=== PATIENT | female | born 1950 | race Two or more races ===

== ENCOUNTER → 2020-10-13 | Outpatient (CLI) | payer MEDICARE | END | disposition home or self-care (01) | LOC: Rad HDHVI 13:45 | PROVIDERS: ATTEND Internal Medicine Cardiovascular Disease | DX: R94.31 Abnormal electrocardiogram [ECG] [EKG] (principal); I10 Essential (primary) hypertension | CPT/HCPCS: 93306 ==

== ENCOUNTER → 2020-10-14 | Outpatient (CLI) | payer MEDICARE ==
[~2020-10-14] VITALS: Ht 162.6 cm; Wt 106.1 kg
[~2020-10-14] MED LIST: ADENOSINE 89 MG in GIVE UN-DILUTED 0 ML IV ONE; ADENOSINE 90 MG/30 ML INJ IV ONE
== END | disposition home or self-care (01) ==
LOC: Rad HDHVI 13:32
PROVIDERS: ATTEND Internal Medicine Cardiovascular Disease
DX: I10 Essential (primary) hypertension (principal); R00.0 Tachycardia, unspecified; E11.9 Type 2 diabetes mellitus without complications
CPT/HCPCS: 78452; 93005; 96374; 96375; A9500; J0153

== ENCOUNTER → 2022-01-14 | Outpatient (CLI) | payer MEDICARE, OTHER | END | disposition home or self-care (01) | LOC: Rad HDHVI 11:04 | PROVIDERS: ATTEND Internal Medicine Cardiovascular Disease | DX: I08.3 Combined rheumatic disorders of mitral, aortic and tricuspid valves (principal); R00.0 Tachycardia, unspecified | CPT/HCPCS: 93306 ==

== ENCOUNTER → 2022-01-19 | Outpatient (CLI) | payer MEDICARE, OTHER ==
[~2022-01-19] VITALS: Ht 162.6 cm; Wt 108.0 kg
[~2022-01-19] MED LIST changes: -ADENOSINE 89 MG in GIVE UN-DILUTED 0 ML IV ONE; +ADENOSINE 91 MG in GIVE UN-DILUTED 0 ML IV ONE
== END | disposition home or self-care (01) ==
LOC: Rad HDHVI 09:11
PROVIDERS: ATTEND Internal Medicine Cardiovascular Disease
DX: E11.65 Type 2 diabetes mellitus with hyperglycemia (principal); I11.0 Hypertensive heart disease with heart failure; I50.23 Acute on chronic systolic (congestive) heart failure; I25.2 Old myocardial infarction; I48.91 Unspecified atrial fibrillation; R06.02 Shortness of breath; E11.40 Type 2 diabetes mellitus with diabetic neuropathy, unspecified; E11.21 Type 2 diabetes mellitus with diabetic nephropathy; R60.1 Generalized edema; I42.0 Dilated cardiomyopathy; I48.0 Paroxysmal atrial fibrillation; E78.00 Pure hypercholesterolemia, unspecified; Z79.899 Other long term (current) drug therapy
CPT/HCPCS: 78452; 93005; 96374; 96375; A9500; J0153

== ENCOUNTER 2022-03-04 07:55 | Day surgery (SDC) | payer MEDICARE, OTHER ==
[~2022-03-04] VITALS: Ht 162.6 cm; Wt 102.1 kg
[~2022-03-04 07:55] MED LIST changes: -ADENOSINE 90 MG/30 ML INJ IV ONE; -ADENOSINE 91 MG in GIVE UN-DILUTED 0 ML IV ONE; +AMIO200T33 PO; +APIX2.5T PO; +BUPR-160 PO; +INSLANTI SC; +INSU50IN SC; +LOSA-39 PO; +METO-6 PO; +TRAZ100T3 PO
[2022-03-04] MEDS ORDERED: LIDOCAINE 2%HCL (LOCAL ANESTH.) INJ 10ml MDV ONE (14:11)
[2022-03-04] MEDS ORDERED: fentaNYL CITRATE 100 MCG/2 ML VL ONE (14:11)
[2022-03-04] MEDS ORDERED: MIDAZOLAM HCL 2MG/2ML 2ml VIAL (1mg/ml) ONE (14:11)
[2022-03-04] MEDS ORDERED: ANGIOMAX 250 MG VIAL IV ONE (14:11)
[2022-03-04] MEDS ORDERED: SODIUM CHL 0.9% 0 ML ONE (14:11)
[2022-03-04] MEDS ORDERED: FUROSEMIDE 20 MG/2 ML VIAL ONE (14:33)
[2022-03-04 14:52] VITALS: BP 131/56
[2022-03-04 15:08] VITALS: BP 112/64
[2022-03-04 15:22] VITALS: BP 112/69
[2022-03-04 15:37] VITALS: BP 123/57
[2022-03-04 15:52] VITALS: BP 127/69
[2022-03-04 16:52] VITALS: BP 142/62
== END 2022-03-04 17:13 | disposition home or self-care (01) ==
LOC: CATH 07:55
PROVIDERS: ATTEND Internal Medicine Cardiovascular Disease
DX: R07.89 Other chest pain (principal); R94.39 Abnormal result of other cardiovascular function study; I48.0 Paroxysmal atrial fibrillation; I50.30 Unspecified diastolic (congestive) heart failure; Z20.822 Contact with and (suspected) exposure to COVID-19
CPT/HCPCS: 93458; C1760; C1769; C1894; J1644; J1940; J2001; J2250; J3010; U0003; 99152; 99153

== ENCOUNTER 2022-09-17 18:22 | Inpatient (IN) | payer MEDICARE, OTHER ==
[~2022-09-17] VITALS: Ht 162.6 cm; Wt 102.9 kg
[~2022-09-17 18:22] MED LIST changes: -BUPR-160 PO; +BUPR-346 PO; -LOSA-39 PO; +LOSA100T58 PO; +TRAZ-228 PO; -TRAZ100T3 PO
[2022-09-17 19:35] LABS: Basophils # (auto) 0.1 10 ^3/uL (0-0.2); Basophils % (auto) 1.2 % (0.0-2.0); Eosinophils # (auto) 0.9 10 ^3/uL (0-0.8); Hemoglobin 9.5 g/dL (12.2-16.2); Lymphocytes # (auto) 1.2 10 ^3/uL (0.4-5.4); Mean Corpuscular Hemoglobin 29.8 pg (28.0-32.0); Mean Corpuscular Hgb Conc. 31.8 g/dL (32.0-36.0); Mean Corpuscular Volume 93.5 fL (80.0-100.0); Monocytes # (auto) 1.3 10 ^3/uL (0-1.3); Monocytes % (auto) 13.7 % (0.0-12.0); Neutrophils # (auto) 5.8 10 ^3/uL (1.6-8.6); Neutrophils % (auto) 62.1 % (37.0-80.0); Red Cell Distribution Width 15.3 % (11.8-14.3); White Blood Cell 9.4 10^3/uL (4.4-10.8)
[2022-09-17 19:52] LABS: Albumin 2.9 g/dL (3.4-5.0); Calcium 8.7 mg/dL (8.5-10.1); Potassium 5.3 mmol/L (3.5-5.1)
[2022-09-17 20:01] LABS: Bilirubin, Total 0.2 mg/dL (0.2-1.0); CRP High Sensitivity 1.92 mg/dL (< 0.3); Total Protein 6.5 g/dL (6.4-8.2)
[2022-09-17] MEDS ORDERED: ALBUTEROL SULF 2.5 MG/0.5ML(0.5%) NEB SOLN NEB ONE (21:30)
[2022-09-17] MEDS ORDERED: PIPERACILLIN-TAZOB 3.375GM 100 ML IV ONE (21:30)
[2022-09-17] MEDS ORDERED: FUROSEMIDE 40 MG/4 ML VIAL IV ONE (21:30)
[2022-09-17] MEDS ORDERED: GOLYTELY 4L KIT PO ONE (22:45)
[2022-09-18] MEDS ORDERED: VANCOMYCIN PER PHARMACY 0 MG IV SCH
[2022-09-18] MEDS ORDERED: ONDANSETRON HCL 4 MG/2 ML VIAL IV PRN
[2022-09-18] MEDS ORDERED: FLEET ENEMA(ADULT) 135 ML PR ONE
[2022-09-18] MEDS ORDERED: DEXTROSE (50%) 50ML SYRG IV PRN
[2022-09-18] MEDS ORDERED: NITROGLYCERIN 0.4 MG SL TAB SL PRN
[2022-09-18] MEDS ORDERED: DOCUSATE SOD 100 MG CAP PO PRN
[2022-09-18] MEDS ORDERED: ACETAMINOPHEN 325 MG TAB PO PRN
[2022-09-18] MEDS ORDERED: SODIUM ZIRCONIUM CYCL 10 GM PAK PO ONE
[2022-09-18] MEDS ORDERED: MORPHINE SULFATE INJ 2 MG/ml SYRG IV PRN
[2022-09-18] MEDS ORDERED: VANCOMYCIN 1GM/250ML 250 ML IV ONE (01:00)
[2022-09-18] MEDS: ACCU-CHEK COMFORT CURVE STRIP VI SCH ×4 (07:25→21:44)
[2022-09-18 08:19] LABS: Calcium 9.5 mg/dL (8.5-10.1); Potassium 4.6 mmol/L (3.5-5.1)
[2022-09-18 08:24] LABS: BUN/Creatinine Ratio 36.2 (10.0-20.0); Bilirubin, Total 0.3 mg/dL (0.2-1.0); Total Protein 7.1 g/dL (6.4-8.2)
[2022-09-18 08:40] LABS: Basophils # (auto) 0.1 10 ^3/uL (0-0.2); Basophils % (auto) 0.9 % (0.0-2.0); Eosinophils # (auto) 1.1 10 ^3/uL (0-0.8); Eosinophils % (auto) 11.8 % (0.0-7.0); Hematocrit 31.3 % (36.0-46.0); Hemoglobin 10.2 g/dL (12.2-16.2); Lymphocytes # (auto) 1.6 10 ^3/uL (0.4-5.4); Lymphocytes % (auto) 17.5 % (10.0-50.0); Mean Corpuscular Hemoglobin 30.5 pg (28.0-32.0); Mean Corpuscular Hgb Conc. 32.6 g/dL (32.0-36.0); Mean Corpuscular Volume 93.6 fL (80.0-100.0); Monocytes % (auto) 10.8 % (0.0-12.0); Neutrophils # (auto) 5.5 10 ^3/uL (1.6-8.6); Nucleated Red Blood Cells % 0.1 %; Red Blood Cells 3.34 10^6/uL (4.0-5.20); Red Cell Distribution Width 15.1 % (11.8-14.3); White Blood Cell 9.3 10^3/uL (4.4-10.8)
[2022-09-18] MEDS: SODIUM CHLOR 0.9% PF (SALINE LOCK) 10ML VIAL/SYR IV SCH ×3 (09:13→21:51)
[2022-09-18] MEDS: InsuLIN REG 1unit/0.01ml Soln (100units/ml) SC SCH ×4 (09:13→21:54)
[2022-09-18 09:19] VITALS: PULSE 81; RESP 18; O2SAT 98
[2022-09-18] MEDS: APIXABAN 2.5 MG TAB PO SCH ×2 (10:50→21:53)
[2022-09-18] MEDS ORDERED: FUROSEMIDE 100 MG/10ML VIAL IV ONE (11:30)
[2022-09-18] MEDS: ALBUMIN 25% 50 ML IV SCH ×2 (13:49→21:40)
[2022-09-18 14:45] LABS: Sodium Urine 63 mmol/L (40-220)
[2022-09-18 14:47] LABS: Creatinine, Urine 29 mg/dL (30.0-125.0)
[2022-09-18 15:30] LABS: Urine Bacteria FEW /hpf (None Seen); Urine Blood Negative /uL (Negative); Urine Hyaline Cast FEW /lpf (0 - 2); Urine WBC 34 /hpf (0 - 5)
[2022-09-18 19:25] VITALS: PULSE 86; RESP 17; O2SAT 95
[2022-09-18] MEDS: HYDROcodone-ACET 5/325MG TAB PO PRN (22:55)
[2022-09-19] MEDS: VANCOMYCIN 1GM/250ML 250 ML IV SCH ×2 (03:26→21:17)
[2022-09-19 05:00] VITALS: BP 112/51; PULSE 85; RESP 17; TEMP 97.7; O2SAT 96
[2022-09-19] MEDS: ALBUMIN 25% 50 ML IV SCH (05:14)
[2022-09-19] MEDS: SODIUM CHLOR 0.9% PF (SALINE LOCK) 10ML VIAL/SYR IV SCH ×3 (05:15→21:17)
[2022-09-19 06:31] LABS: BUN/Creatinine Ratio 30.2 (10.0-20.0); Potassium 3.8 mmol/L (3.5-5.1)
[2022-09-19] MEDS: ACCU-CHEK COMFORT CURVE STRIP VI SCH ×4 (07:08→21:33)
[2022-09-19] MEDS: InsuLIN REG 1unit/0.01ml Soln (100units/ml) SC SCH ×4 (07:24→21:35)
[2022-09-19 08:00] VITALS: PULSE 90; RESP 19; O2SAT 98
[2022-09-19 09:00] VITALS: BP 123/55; PULSE 90; RESP 16; TEMP 98; O2SAT 98
[2022-09-19] MEDS ORDERED: FUROSEMIDE 100 MG/10ML VIAL IV SCH (10:00)
[2022-09-19] MEDS: LOSARTAN POTASSIUM 50 MG TAB PO SCH (11:42)
[2022-09-19] MEDS: AMIODARONE HCL 200 MG TAB PO SCH (11:42)
[2022-09-19] MEDS: buPROPion HCL 100 MG TAB PO SCH (11:43)
[2022-09-19] MEDS: METOPROLOL SUCCINATE XL 50 MG TAB PO SCH (11:43)
[2022-09-19] MEDS: APIXABAN 2.5 MG TAB PO SCH ×2 (11:43→21:16)
[2022-09-19] MEDS: INSULIN LISPRO PROTAMINE SC SCH ×2 (11:51→21:36)
[2022-09-19] MEDS: INSULIN LISPRO SC SCH ×2 (11:51→21:36)
[2022-09-19 12:53] VITALS: BP 138/76; PULSE 90; RESP 19; TEMP 97.5; O2SAT 98
[2022-09-19 17:00] VITALS: BP 116/58; PULSE 86; RESP 16; TEMP 97.2; O2SAT 97
[2022-09-19] MEDS: traZODone HCL 50 MG TAB PO SCH (17:03)
[2022-09-19] MEDS: FUROSEMIDE 40 MG TAB PO SCH (17:03)
[2022-09-19] MEDS: INSULIN LANTUS (GLARGINE) 1 /0.01ml (100units/ml) SC SCH (17:05)
[2022-09-19] MEDS: HYDROcodone-ACET 5/325MG TAB PO PRN (21:18)
[2022-09-19 22:00] VITALS: BP 136/67; PULSE 81; RESP 16; TEMP 98.2; O2SAT 97
[2022-09-20 05:00] VITALS: BP 112/49; PULSE 76; RESP 16; TEMP 98.4; O2SAT 97
[2022-09-20] MEDS: FUROSEMIDE 40 MG TAB PO SCH (05:34)
[2022-09-20] MEDS: SODIUM CHLOR 0.9% PF (SALINE LOCK) 10ML VIAL/SYR IV SCH ×3 (05:34→21:35)
[2022-09-20] MEDS: ACCU-CHEK COMFORT CURVE STRIP VI SCH ×4 (06:22→21:37)
[2022-09-20] MEDS: InsuLIN REG 1unit/0.01ml Soln (100units/ml) SC SCH ×4 (06:22→21:36)
[2022-09-20 08:59] LABS: BUN/Creatinine Ratio 26.3 (10.0-20.0); Calcium 9.2 mg/dL (8.5-10.1); Potassium 3.5 mmol/L (3.5-5.1)
[2022-09-20 09:46] VITALS: BP 134/66; PULSE 72; RESP 16; TEMP 98.2; O2SAT 94
[2022-09-20] MEDS: INSULIN LISPRO PROTAMINE SC SCH ×2 (10:00→21:36)
[2022-09-20] MEDS: INSULIN LISPRO SC SCH ×2 (10:00→21:36)
[2022-09-20] MEDS ORDERED: CEPH250C PO (10:48)
[2022-09-20] MEDS ORDERED: FURO1TAB31 PO (10:48)
[2022-09-20] MEDS: buPROPion HCL 100 MG TAB PO SCH (10:54)
[2022-09-20] MEDS: METOPROLOL SUCCINATE XL 50 MG TAB PO SCH (10:55)
[2022-09-20] MEDS: AMIODARONE HCL 200 MG TAB PO SCH (10:55)
[2022-09-20] MEDS: APIXABAN 2.5 MG TAB PO SCH ×2 (10:55→21:33)
[2022-09-20] MEDS: LOSARTAN POTASSIUM 50 MG TAB PO SCH (10:56)
[2022-09-20 14:50] VITALS: BP 111/39; PULSE 78; RESP 16; TEMP 97.9; O2SAT 95
[2022-09-20] MEDS: VANCOMYCIN 1GM/250ML 250 ML IV SCH (15:00)
[2022-09-20] MEDS: FUROSEMIDE INJECTION 100 MG in D5W 5% 100 ML IV SCH (18:16)
[2022-09-20] MEDS: traZODone HCL 50 MG TAB PO SCH (18:16)
[2022-09-20] MEDS: INSULIN LANTUS (GLARGINE) 1 /0.01ml (100units/ml) SC SCH (18:17)
[2022-09-20] MEDS: HYDROcodone-ACET 5/325MG TAB PO PRN (21:34)
[2022-09-20] MEDS: POTASSIUM CHL 20 Meq TABLET PO SCH (21:34)
[2022-09-20 22:12] VITALS: BP 135/53; PULSE 82; RESP 18; TEMP 98.4; O2SAT 94
[2022-09-21] MEDS: FUROSEMIDE INJECTION 100 MG in D5W 5% 100 ML IV SCH ×2 (02:59→12:00)
[2022-09-21 05:25] VITALS: BP 116/51; PULSE 78; RESP 18; O2SAT 93
[2022-09-21] MEDS: SODIUM CHLOR 0.9% PF (SALINE LOCK) 10ML VIAL/SYR IV SCH ×3 (06:00→21:33)
[2022-09-21] MEDS: InsuLIN REG 1unit/0.01ml Soln (100units/ml) SC SCH ×4 (07:00→21:20)
[2022-09-21] MEDS: ACCU-CHEK COMFORT CURVE STRIP VI SCH ×4 (07:07→21:19)
[2022-09-21 09:00] VITALS: BP 109/50; PULSE 81; RESP 14; TEMP 98.4; O2SAT 91
[2022-09-21] MEDS: VANCOMYCIN 1GM/250ML 250 ML IV SCH (09:25)
[2022-09-21] MEDS: buPROPion HCL 100 MG TAB PO SCH (09:26)
[2022-09-21] MEDS: METOPROLOL SUCCINATE XL 50 MG TAB PO SCH (09:27)
[2022-09-21] MEDS: AMIODARONE HCL 200 MG TAB PO SCH (09:28)
[2022-09-21] MEDS: LOSARTAN POTASSIUM 50 MG TAB PO SCH (09:28)
[2022-09-21] MEDS: APIXABAN 2.5 MG TAB PO SCH ×2 (09:28→21:19)
[2022-09-21] MEDS: INSULIN LISPRO SC SCH (09:29)
[2022-09-21] MEDS: INSULIN LISPRO PROTAMINE SC SCH (09:29)
[2022-09-21] MEDS: POTASSIUM CHL 20 Meq TABLET PO SCH ×2 (09:29→21:18)
[2022-09-21] MEDS: LINZESS 290 MCG PO SCH (09:31)
[2022-09-21 11:57] LABS: BUN/Creatinine Ratio 27.6 (10.0-20.0); Calcium 9.2 mg/dL (8.5-10.1); Potassium 3.9 mmol/L (3.5-5.1)
[2022-09-21 13:00] VITALS: BP 120/58; PULSE 75; RESP 18; TEMP 97.8; O2SAT 100
[2022-09-21 17:00] VITALS: BP 117/60; PULSE 72; RESP 20; TEMP 97.9; O2SAT 98
[2022-09-21 17:46] LABS: BUN/Creatinine Ratio 25.3 (10.0-20.0); Calcium 8.9 mg/dL (8.5-10.1); Potassium 3.8 mmol/L (3.5-5.1)
[2022-09-21] MEDS: INSULIN LANTUS (GLARGINE) 1 /0.01ml (100units/ml) SC SCH (17:48)
[2022-09-21] MEDS: traZODone HCL 50 MG TAB PO SCH (17:52)
[2022-09-21] MEDS: HYDROcodone-ACET 5/325MG TAB PO PRN (21:19)
[2022-09-21 22:33] VITALS: BP 120/56; PULSE 75; RESP 22; TEMP 98.5; O2SAT 95
[2022-09-22] MEDS: VANCOMYCIN 1GM/250ML 250 ML IV SCH (02:50)
[2022-09-22 04:55] VITALS: BP 107/40; PULSE 72; RESP 16; TEMP 97.8; O2SAT 99
[2022-09-22] MEDS: ACCU-CHEK COMFORT CURVE STRIP VI SCH ×2 (06:25→11:30)
[2022-09-22] MEDS: SODIUM CHLOR 0.9% PF (SALINE LOCK) 10ML VIAL/SYR IV SCH ×2 (06:27→14:00)
[2022-09-22] MEDS: InsuLIN REG 1unit/0.01ml Soln (100units/ml) SC SCH ×2 (06:27→11:30)
[2022-09-22 06:46] LABS: Potassium 4.1 mmol/L (3.5-5.1)
[2022-09-22 06:53] LABS: Basophils # (auto) 0.1 10 ^3/uL (0-0.2); Eosinophils # (auto) 0.8 10 ^3/uL (0-0.8); Eosinophils % (auto) 8.7 % (0.0-7.0); Hematocrit 31.4 % (36.0-46.0); Hemoglobin 10.3 g/dL (12.2-16.2); Lymphocytes # (auto) 2.2 10 ^3/uL (0.4-5.4); Lymphocytes % (auto) 22.7 % (10.0-50.0); Mean Corpuscular Hemoglobin 30.5 pg (28.0-32.0); Mean Corpuscular Hgb Conc. 32.8 g/dL (32.0-36.0); Mean Corpuscular Volume 92.8 fL (80.0-100.0); Monocytes # (auto) 1.4 10 ^3/uL (0-1.3); Monocytes % (auto) 14.8 % (0.0-12.0); Neutrophils # (auto) 5.2 10 ^3/uL (1.6-8.6); Neutrophils % (auto) 52.8 % (37.0-80.0); Red Blood Cells 3.39 10^6/uL (4.0-5.20); Red Cell Distribution Width 14.5 % (11.8-14.3); White Blood Cell 9.8 10^3/uL (4.4-10.8)
[2022-09-22 06:54] LABS: Albumin 2.9 g/dL (3.4-5.0); Bilirubin, Total 0.3 mg/dL (0.2-1.0); Calcium 8.9 mg/dL (8.5-10.1); Total Protein 6.5 g/dL (6.4-8.2)
[2022-09-22 08:00] VITALS: PULSE 76; RESP 20; O2SAT 96
[2022-09-22 09:00] VITALS: BP 124/58; PULSE 76; RESP 20; TEMP 97.7; O2SAT 96
[2022-09-22] MEDS: buPROPion HCL 100 MG TAB PO SCH (09:41)
[2022-09-22] MEDS: APIXABAN 2.5 MG TAB PO SCH (09:45)
[2022-09-22] MEDS: METOPROLOL SUCCINATE XL 50 MG TAB PO SCH (09:46)
[2022-09-22] MEDS: LOSARTAN POTASSIUM 50 MG TAB PO SCH (09:47)
[2022-09-22] MEDS: AMIODARONE HCL 200 MG TAB PO SCH (09:49)
[2022-09-22] MEDS: POTASSIUM CHL 20 Meq TABLET PO SCH (09:51)
[2022-09-22] MEDS: LINZESS 290 MCG PO SCH (10:00)
[2022-09-22] MEDS ORDERED: SPIRONOLACTONE 25 MG TAB PO SCH (10:00)
[2022-09-22 13:00] VITALS: BP 104/34; PULSE 71; RESP 21; TEMP 98.2; O2SAT 99
== END 2022-09-22 14:30 | disposition home or self-care (01) | DRG 392 ==
LOC: ER 18:22 → OVERFLOW 09-18 00:11 → EAST 09-18 23:05
PROVIDERS: ADMIT Internal Medicine; ATTEND Internal Medicine Cardiovascular Disease
DX: K59.00 Constipation, unspecified (principal); N17.9 Acute kidney failure, unspecified; D68.9 Coagulation defect, unspecified; L97.929 Non-pressure chronic ulcer of unspecified part of left lower leg with unspecified severity; L03.90 Cellulitis, unspecified; I13.0 Hypertensive heart and chronic kidney disease with heart failure and stage 1 through stage 4 chronic kidney disease, or unspecified chronic kidney disease; I50.32 Chronic diastolic (congestive) heart failure; E87.5 Hyperkalemia; E11.22 Type 2 diabetes mellitus with diabetic chronic kidney disease; E11.40 Type 2 diabetes mellitus with diabetic neuropathy, unspecified; D64.9 Anemia, unspecified; E11.621 Type 2 diabetes mellitus with foot ulcer; N18.31 Chronic kidney disease, stage 3a; E11.65 Type 2 diabetes mellitus with hyperglycemia; E88.09 Other disorders of plasma-protein metabolism, not elsewhere classified; G20 Parkinson's disease; I25.10 Atherosclerotic heart disease of native coronary artery without angina pectoris; E11.43 Type 2 diabetes mellitus with diabetic autonomic (poly)neuropathy; I48.91 Unspecified atrial fibrillation; K52.9 Noninfective gastroenteritis and colitis, unspecified; E78.5 Hyperlipidemia, unspecified; E87.6 Hypokalemia; L97.509 Non-pressure chronic ulcer of other part of unspecified foot with unspecified severity; K31.84 Gastroparesis; E11.51 Type 2 diabetes mellitus with diabetic peripheral angiopathy without gangrene; Z88.2 Allergy status to sulfonamides; Z79.4 Long term (current) use of insulin
CPT/HCPCS: 36415; 74176; 80048; 80053; 80202; 81001; 82570; 82962; 83036; 83605; 83880; 84300; 85025; 85652; 86141; 86850; 86900; 86901; 94640; 96365; 96367; 97110; 97116; 97163; 97530; G0378; J1815; J2543; J7060

== ENCOUNTER → 2023-03-31 | Outpatient (CLI) | payer MEDICARE, OTHER ==
[~2023-03-31] MED LIST changes: +CEPH250C PO; +FURO1TAB31 PO
== END | disposition home or self-care (01) ==
LOC: Rad HDHVI 13:38
PROVIDERS: ATTEND Internal Medicine Cardiovascular Disease
DX: I08.3 Combined rheumatic disorders of mitral, aortic and tricuspid valves (principal); I11.9 Hypertensive heart disease without heart failure; R00.2 Palpitations
CPT/HCPCS: 93306

== ENCOUNTER 2024-09-21 10:21 | Outpatient (CLI) | payer MEDICARE, OTHER ==
[~2024-09-21 10:21] MED LIST changes: +LOSA-535 PO; -LOSA100T58 PO
== END 2024-09-21 17:00 | disposition home or self-care (01) ==
LOC: Rad HDHVI 10:21
PROVIDERS: ATTEND Internal Medicine Cardiovascular Disease
DX: I08.0 Rheumatic disorders of both mitral and aortic valves (principal); I50.43 Acute on chronic combined systolic (congestive) and diastolic (congestive) heart failure
CPT/HCPCS: 93306

== ENCOUNTER 2024-10-01 12:07 | Outpatient (CLI) | payer MEDICARE, OTHER ==
[~2024-10-01] VITALS: Ht 162.6 cm; Wt 89.8 kg
[2024-10-01] MEDS ORDERED: ADENOSINE 90 MG/30 ML INJ IV ONE (13:23)
[2024-10-01] MEDS ORDERED: ADENOSINE 75 MG in GIVE UN-DILUTED 0 ML IV ONE (13:30)
== END 2024-10-01 17:00 | disposition home or self-care (01) ==
LOC: Rad HDHVI 12:07
PROVIDERS: ATTEND Internal Medicine Cardiovascular Disease
DX: I49.1 Atrial premature depolarization (principal); I44.7 Left bundle-branch block, unspecified; I11.0 Hypertensive heart disease with heart failure; I50.43 Acute on chronic combined systolic (congestive) and diastolic (congestive) heart failure; R00.2 Palpitations; I42.0 Dilated cardiomyopathy; I87.2 Venous insufficiency (chronic) (peripheral); E78.00 Pure hypercholesterolemia, unspecified; E11.40 Type 2 diabetes mellitus with diabetic neuropathy, unspecified; I48.91 Unspecified atrial fibrillation; Z88.2 Allergy status to sulfonamides
CPT/HCPCS: 78452; 93017; A9500; J0153